=== PATIENT | female | born 1980 | race Caucasian/White ===

== ENCOUNTER 2018-06-13 22:05 | Emergency (ER) | payer OTHER ==
[~2018-06-13 22:05] MED LIST: LIDOCAINE PATCH REMOVAL MC SCH
[2018-06-13 22:21] VITALS: BMI 36.0
[2018-06-13] MEDS ORDERED: METOCLOPRAMIDE HCL INJECTION 10 MG/2 ML VIAL IVPB ONE (22:33)
[2018-06-13] MEDS ORDERED: ACETAMINOPHEN 1000 MG/100 ML VIAL (NON FORMULARY) IVPB ONE (22:33)
[2018-06-13] MEDS ORDERED: SODIUM CHLORIDE 1,000 ML IV STA (22:33)
[2018-06-13] MEDS ORDERED: LIDOCAINE 5% TOPICAL PATCH TP ONE (22:34)
[2018-06-13] MEDS ORDERED: ACETAMINOPHEN INJECTION 100 ML IVPB ONE (22:58)
[2018-06-13] MEDS ORDERED: LIDOCAINE 5% TOPICAL PATCH ONE (22:58)
[2018-06-13] MEDS ORDERED: METOCLOPRAMIDE HCL INJECTION 10 MG/2 ML VIAL ONE (22:58)
--- NOTE | 2018-06-13 23:58 | PDOC ---
History of Present Illness - General Chief Complaint: Headache Stated Complaint: HEAD PAIN Time Seen by Provider: 06/13/18 22:23 History Source: Patient Exam Limitations: No Limitations Past History - Past Medical History Allergies/Adverse Reactions: Allergies Allergy/AdvReac Type Severity Reaction Status Date / Time No Known Allergies Allergy Verified 06/13/18 22:21 Home Medications: Ambulatory Orders Lidocaine 5% Patch [Lidoderm -] 1 patch TP DAILY #30 patch 06/14/18 COPD: No GI Disorders: Yes Kidney Stones: Yes Psychiatric Problems: Yes (BIPOLAR) - Reproductive History (#): 4 Para: 3 - Immunization History Immunization Up to Date: Yes - Suicide/Smoking/Psychosocial Hx Smoking History: Current every day smoker Have you smoked in the past 12 months: Yes Number of Cigarettes Smoked Daily: 10 Information on smoking cessation initiated: No 'Breaking Loose' booklet given: 06/30/15 Hx Alcohol Use: No Drug/Substance Use Hx: Yes Substance Use Type: None Hx Substance Use Treatment: No *Physical Exam - Vital Signs Last Vital Signs Temp Pulse Resp BP Pulse Ox 97.7 F 82 18 146/99 100 06/13/18 22:18 06/13/18 22:18 06/13/18 22:18 06/13/18 22:18 06/13/18 22:18 - Physical Exam General Appearance: Yes: Other (Crying (not due to pain)) HEENT: positive: EOMI, LATRICE Neck: positive: Other (+TTP along L traps, slight pain with turning neck to left ). negative: Rigidity, Tender midline Respiratory/Chest: positive: Lungs Clear, Normal Breath Sounds. negative: Respiratory Distress Cardiovascular: positive: Regular Rhythm, Regular Rate, S1, S2. negative: Murmur Gastrointestinal/Abdominal: positive: Normal Bowel Sounds, Soft. 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 negative: Facial Droop, Confused, Disoriented ED Treatment Course - Medications Given in the ED: ED Medications Discontinued Medications Generic Name Dose Route Start Last Admin Trade Name Freq PRN Reason Stop Dose Admin Acetaminophen 1,000 mg 06/13/18 22:33 06/13/18 23:38 Ofirmev Injection - IVPB 06/13/18 22:34 1,000 mg ONCE ONE Administration Sodium Chloride 1,000 mls @ 1,000 mls/hr 06/13/18 22:33 06/13/18 23:15 Normal Saline - IV 06/13/18 23:32 1,000 mls/hr ASDIR STA Administration Lidocaine 1 patch 06/13/18 22:34 06/13/18 23:10 Lidoderm Patch - TP 06/13/18 22:35 1 patch ONCE ONE Administration Metoclopramide HCl 10 mg 06/13/18 22:33 06/13/18 23:15 Reglan Injection - IVPB 06/13/18 22:34 10 mg ONCE ONE Administration Medical Decision Making - Medical Decision Making 37 y/o F with no sig pmh presents with L sided neck pain and generalized ROBERTO from yesterday, gradual in onset, worsening today. Mentions has been upset as her cousin recently 1 week ago. Took Advil at 4 PM which helped slightly with pain. Today had 3 episodes of NBNB emesis. Noise makes ROBERTO worse. Denies visual/gait changes, numbness/tingling/weakness of extremities, recent trauma, sob, cp, abd pain, dizziness. Likely tension ROBERTO vs migraine Plan: Tylenol, Reglan, IVF, Lido patch, reassess 06/13/18 23:56 Patient feeling much better on reassessment Stable for dc 06/14/18 00:48 *DC/Admit/Observation/Transfer Diagnosis at time of Disposition: Migraine headache Qualifiers: Migraine type: without aura Status migrainosus presence: without status migrainosus Intractability: not intractable Qualified Code(s): G43.009 - Migraine without aura, not intractable, without status migrainosus - Discharge Dispostion Disposition: HOME Condition at time of disposition: Improved Decision to Admit order: No - Prescriptions Prescriptions: Lidocaine 5% Patch [Lidoderm -] 1 patch TP DAILY #30 patch - Referrals - Patient Instructions Printed Discharge Instructions: DI for Migraine Additional Instructions: Thank you for choosing [facility]. It was a pleasure taking care of you. Likely you had a migraine headache Please follow-up with your primary care doctor for further evaluation Return to the Emergency Department if your symptoms worsen or persist, you have fever, vomiting, dizziness, weakness of extremities (arms and/or legs), changes in vision or walking or other concerning symptoms. - Post Discharge Activity
--- NOTE | 2018-06-14 00:53 | PDOC ---
*Physical Exam - Vital Signs Last Vital Signs Temp Pulse Resp BP Pulse Ox 97.7 F 82 18 146/99 100 06/13/18 22:18 06/13/18 22:18 06/13/18 22:18 06/13/18 22:18 06/13/18 22:18 ED Treatment Course - Medications Given in the ED: ED Medications Discontinued Medications Generic Name Dose Route Start Last Admin Trade Name Cullen PRN Reason Stop Dose Admin Acetaminophen 1,000 mg 06/13/18 22:33 06/13/18 23:38 Ofirmev Injection - IVPB 06/13/18 22:34 1,000 mg ONCE ONE Administration Sodium Chloride 1,000 mls @ 1,000 mls/hr 06/13/18 22:33 06/13/18 23:15 Normal Saline - IV 06/13/18 23:32 1,000 mls/hr ASDIR STA Administration Lidocaine 1 patch 06/13/18 22:34 06/13/18 23:10 Lidoderm Patch - TP 06/13/18 22:35 1 patch ONCE ONE Administration Metoclopramide HCl 10 mg 06/13/18 22:33 06/13/18 23:15 Reglan Injection - IVPB 06/13/18 22:34 10 mg ONCE ONE Administration Medical Decision Making - Medical Decision Making 06/14/18 00:52 Case discussed with CJ White Agree with assessment and plan *DC/Admit/Observation/Transfer Diagnosis at time of Disposition: Migraine headache Qualifiers: Migraine type: without aura Status migrainosus presence: without status migrainosus Intractability: not intractable Qualified Code(s): G43.009 - Migraine without aura, not intractable, without status migrainosus - Discharge Dispostion Disposition: HOME Condition at time of disposition: Improved - Prescriptions Prescriptions: Lidocaine 5% Patch [Lidoderm -] 1 patch TP DAILY #30 patch - Referrals - Patient Instructions Printed Discharge Instructions: DI for Migraine Additional Instructions: Thank you for choosing [facility]. It was a pleasure taking care of you. Likely you had a migraine headache Please follow-up with your primary care doctor for further evaluation Return to the Emergency Department if your symptoms worsen or persist, you have fever, vomiting, dizziness, weakness of extremities (arms and/or legs), changes in vision or walking or other concerning symptoms. - Post Discharge Activity
[2018-06-14 00:58] VITALS: BP 134/66; PULSE 96; TEMP 98
== END 2018-06-14 01:10 | disposition home or self-care (01) ==
LOC: JER 22:05
PROC: 3E033GC Introduction of Other Therapeutic Substance into Peripheral Vein, Percutaneous Approach (ICD-10-PCS; principal; 2018-06-13)
PROC: 3E033NZ Introduction of Analgesics, Hypnotics, Sedatives into Peripheral Vein, Percutaneous Approach (ICD-10-PCS; 2018-06-13)
DX: G43.009 Migraine without aura, not intractable, without status migrainosus (principal); F31.9 Bipolar disorder, unspecified; F17.210 Nicotine dependence, cigarettes, uncomplicated
CPT/HCPCS: 99282-25; J0131; J7030

== ENCOUNTER 2018-06-18 01:50 | Emergency (ER) | payer OTHER ==
[2018-06-18 02:22] VITALS: BP 126/75; PULSE 84; TEMP 98.2; BMI 39.4
--- NOTE | 2018-06-18 02:32 | PDOC ---
*Physical Exam - Vital Signs Last Vital Signs Temp Pulse Resp BP Pulse Ox 98.2 F 84 18 126/75 99 06/18/18 01:50 06/18/18 01:50 06/18/18 01:50 06/18/18 01:50 06/18/18 01:50 Medical Decision Making - Medical Decision Making 06/18/18 02:31 Patient seen by the advanced practice provider under my direct supervision. Ancillary testing reviewed as necessary. I agree with plan as outlined by the advanced practice provider. *DC/Admit/Observation/Transfer Diagnosis at time of Disposition: Left ankle sprain Qualifiers: Encounter type: initial encounter Involved ligament of ankle: unspecified ligament Qualified Code(s): S93.402A - Sprain of unspecified ligament of left ankle, initial encounter - Discharge Dispostion Disposition: HOME Condition at time of disposition: Fair - Prescriptions Prescriptions: Ibuprofen 800 mg PO QID PRN #20 tablet PRN Reason: Pain - Referrals Referrals: Nima Connor MD [Staff Physician] - Call tomorrow Olivia Awan MD [Primary Care Provider] - - Patient Instructions Printed Discharge Instructions: DI for Ankle Sprain Additional Instructions: keep in ankle splint. use crutches as directed. apply ice to the area for 24 hours. elevate your leg as much as possible. take ibuprofen every 6 hours as needed for pain follow up with an orthopedic doctor as soon as possible. - Post Discharge Activity Forms/Work/School Notes: Back to Work
--- NOTE | 2018-06-18 02:38 | PDOC ---
History of Present Illness - General Chief Complaint: Pain, Acute Stated Complaint: L ANKLE INJURY Time Seen by Provider: 06/18/18 02:29 History Source: Patient - History of Present Illness Initial Comments: 06/18/18 03:36 37-year-old female complaining of left ankle pain and swelling after twisting ankle on uneven pavement of the street. Patient reports that she is unable to weight-bear. Denies any past medical history. Past History - Past Medical History Allergies/Adverse Reactions: Allergies Allergy/AdvReac Type Severity Reaction Status Date / Time No Known Allergies Allergy Verified 06/18/18 02:22 Home Medications: Ambulatory Orders Lidocaine 5% Patch [Lidoderm -] 1 patch TP DAILY #30 patch 06/14/18 Ibuprofen 800 mg PO QID PRN #20 tablet 06/18/18 COPD: No GI Disorders: Yes Kidney Stones: Yes Psychiatric Problems: Yes (BIPOLAR) - Reproductive History (#): 4 Para: 3 - Immunization History Immunization Up to Date: Yes - Suicide/Smoking/Psychosocial Hx Smoking History: Never smoked Have you smoked in the past 12 months: No Number of Cigarettes Smoked Daily: 10 Information on smoking cessation initiated: No 'Breaking Loose' booklet given: 06/30/15 Hx Alcohol Use: No Drug/Substance Use Hx: No Substance Use Type: None Hx Substance Use Treatment: No Review of Systems - Review of Systems Able to Perform ROS?: Yes Is the patient limited Kyrgyz proficient: No Musculoskeletal: Yes: Other (left ankle pain.) *Physical Exam - Vital Signs Last Vital Signs Temp Pulse Resp BP Pulse Ox 98.2 F 84 18 126/75 99 06/18/18 01:50 06/18/18 01:50 06/18/18 01:50 06/18/18 01:50 06/18/18 01:50 - Physical Exam General Appearance: Yes: Appropriately Dressed Musculoskeletal: positive: Normal Inspection Extremity: positive: Swelling (left ankle.) Integumentary: positive: Normal Color, Dry Progress Note - Progress Note Progress Note: A: left ankle sprain P; XRay: no acute fracture. pending official read RICE \ ankle stirrup and crutches given in the ED outpatient ortho follow up discussed with patient. *DC/Admit/Observation/Transfer Diagnosis at time of Disposition: Left ankle sprain Qualifiers: Encounter type: initial encounter Involved ligament of ankle: unspecified ligament Qualified Code(s): S93.402A - Sprain of unspecified ligament of left ankle, initial encounter - Discharge Dispostion Disposition: HOME Condition at time of disposition: Fair - Prescriptions Prescriptions: Ibuprofen 800 mg PO QID PRN #20 tablet PRN Reason: Pain - Referrals Referrals: Olivia Awan MD [Primary Care Provider] - Nima Connor MD [Staff Physician] - Call tomorrow - Patient Instructions Printed Discharge Instructions: DI for Ankle Sprain Additional Instructions: keep in ankle splint. use crutches as directed. apply ice to the area for 24 hours. elevate your leg as much as possible. take ibuprofen every 6 hours as needed for pain follow up with an orthopedic doctor as soon as possible. - Post Discharge Activity Forms/Work/School Notes: Back to Work
[2018-06-18] MEDS ORDERED: KETOROLAC TROMETHAMINE 30 MG/1 ML VIAL IM ONE (02:58)
[2018-06-18] MEDS ORDERED: KETOROLAC TROMETHAMINE 30 MG/1 ML VIAL ONE (03:11)
== END 2018-06-18 04:12 | disposition home or self-care (01) ==
LOC: JER 01:50
PROC: 2W3QX1Z Immobilization of Right Lower Leg using Splint (ICD-10-PCS; principal; 2018-06-18)
DX: S93.402A Sprain of unspecified ligament of left ankle, initial encounter (principal); X50.1XXA Overexertion from prolonged static or awkward postures, initial encounter; Y93.01 Activity, walking, marching and hiking; Y92.414 Local residential or business street as the place of occurrence of the external cause; Y99.8 Other external cause status
CPT/HCPCS: 29515; 73610-TC-LT-FY; 73630-TC-LT; 99282-25

== ENCOUNTER 2018-11-26 21:47 | Emergency (ER) | payer OTHER ==
[2018-11-26] MEDS ORDERED: ACETAMINOPHEN 500 MG TABLET (FP) PO ONE (21:52)
--- NOTE | 2018-11-26 21:53 | PDOC ---
Rapid Medical Evaluation Chief Complaint: Pain Time Seen by Provider: 11/26/18 21:51 Medical Evaluation: Allergies Allergy/AdvReac Type Severity Reaction Status Date / Time No Known Allergies Allergy Verified 11/26/18 21:51 11/26/18 21:53 Pt c/o: suprapubic pain x 2 hrs, unknown gest age ? approx 2 months Pt on brief exam: vss, no vag bleeding Pt ordered for: labs, urine and u/s, tylenol Pt to proceed to the ED Discharge Disposition - Diagnosis First trimester , Subchorionic bleed, Pelvic pain - Discharge Dispostion Disposition: HOME Condition at time of disposition: Good - Referrals - Patient Instructions Printed Discharge Instructions: DI for -- Discomforts and Remedies Additional Instructions: please keep your padder cushion appointment at [address] - Post Discharge Activity
[2018-11-26 21:54] VITALS: BMI 37.2
[2018-11-26 22:11] LABS: BASO % 1.3 % (0-2.0); HEMATOCRIT 33.9 % (32.4-45.2); HEMOGLOBIN 11.2 GM/dL (10.7-15.3); LYMPH % 24.6 % (8-40); MCH 25.3 pg (25.7-33.7); MCHC 32.9 g/dl (32.0-36.0); MEAN CELL VOLUME 76.9 fl (80-96); MEAN PLT VOLUME 7.2 fl (7.5-11.1); MONO % 9.4 % (3.8-10.2); NEUT % 62.7 % (42.8-82.8); PLATELET COUNT 477 K/MM3 (134-434); RBC 4.41 M/mm3 (3.60-5.2); RDW 17.8 % (11.6-15.6); WHITE BLOOD COUNT 14.8 K/mm3 (4.0-10.0)
[2018-11-26 22:12] LABS: PH,URINE 5.5 (5.0-8.0); URINE APPEARANCE CLEAR; URINE BILIRUBIN NEGATIVE (NEGATIVE); URINE COLOR YELLOW; URINE GLUCOSE (UA) NEGATIVE (NEGATIVE); URINE KETONE TRACE (NEGATIVE); URINE LEUK ESTERASE NEGATIVE (NEGATIVE); URINE NITRITE NEGATIVE (NEGATIVE); URINE PROTEIN NEGATIVE (NEGATIVE); URINE UROBILINOGEN 0.2 mg/dL (0.2-1.0)
--- NOTE | 2018-11-26 22:12 | PDOC ---
History of Present Illness - General Chief Complaint: Pain Stated Complaint: PAIN Time Seen by Provider: 11/26/18 21:51 History Source: Patient Exam Limitations: No Limitations - History of Present Illness Travel History: No Timing/Duration: reports: constant Quality: reports: mild (she has had some suprapubic pain) Pain Radiation: reports: no radiation Activities at Onset: reports: none Aggravating Factors: improves with: None Alleviating Factors: improves with: None Past History - Past Medical History Allergies/Adverse Reactions: Allergies Allergy/AdvReac Type Severity Reaction Status Date / Time No Known Allergies Allergy Verified 11/26/18 21:51 Home Medications: Ambulatory Orders Lidocaine 5% Patch [Lidoderm -] 1 patch TP DAILY #30 patch 06/14/18 Ibuprofen 800 mg PO QID PRN #20 tablet 06/18/18 Asthma: Yes COPD: No GI Disorders: Yes HTN: Yes Kidney Stones: Yes Psychiatric Problems: Yes (BIPOLAR) - Reproductive History (#): 4 Para: 3 - Immunization History Immunization Up to Date: Yes - Psycho Social/Smoking Cessation Hx Smoking History: Current every day smoker Have you smoked in the past 12 months: No Number of Cigarettes Smoked Daily: 10 Information on smoking cessation initiated: No 'Breaking Loose' booklet given: 06/30/15 Hx Alcohol Use: No Drug/Substance Use Hx: No Substance Use Type: None Hx Substance Use Treatment: No Review of Systems - Review of Systems Able to Perform ROS?: Yes Is the patient limited Northern Irish proficient: No Constitutional: No: Symptoms Reported, See HPI, Chills, Diaphoresis, Fever, Loss of Appetite, Malaise, Night Sweats, Weakness, Weight Stable, Unintentional Wgt. Loss, Unexplained wgt Loss, Other HEENTM: No: Symptoms Reported, See HPI, Eye Pain, Blurred Vision, Tearing, Recent change in vision, Double Vision, Cataracts, Ear Pain, Ocular Prothesis, Ear Discharge, Nose Pain, Nose Congestion, Tinnitus, Nose Bleeding, Hearing Loss , Throat Pain, Throat Swelling, Mouth Pain, Dental Problems, Difficulty Swallowing, Mouth Swelling, Other Respiratory: No: Symptoms reported, See HPI, Cough, Orthopnea, Shortness of Breath, SOB with Exertion, SOB at Rest, Stridor, Wheezing, Productive cough, Hemoptysis, Other Cardiac (ROS): No: Symptoms Reported, See HPI, Chest Pain, Edema, Irregular Heart Rate, Lightheadedness, Palpitations, Syncope, Chest Tightness, Other : Yes: Other (pelvic cramping) Musculoskeletal: No: Symptoms Reported, See HPI, Back Pain, Gout, Joint Pain, Joint Swelling, Muscle Pain, Muscle Weakness, Neck Pain, Joint Stiffness, Other Integumentary: No: Symptoms Reported, See HPI, Bruising, Change in Color, Change in Hair/Nails, Dryness, Erythema, Flushing, Lesions, Lumps, Pallor, Pruritus, Rash, Sweating, Other Neurological: No: Symptoms reported, See HPI, Headache, Numbness, Paresthesia, Pre-Existing Deficit, Seizure, Tingling, Tremors, Weakness, Unsteady Gait, Ataxia, Dizziness, Other Endocrine: No: Symptoms Reported, See HPI, Excessive Sweating, Flushing, Intolerance to Cold, Intolerance to Heat, Increased Hunger, Increased Thirst, Increased Urine, Unexplained Weight Gain, Unexplained Weight Loss, Change in Weight, Other Hematologic/Lymphatic: No: Symptoms Reported, See HPI, Anemia, Blood Clots, Easy Bleeding, Easy Bruising, Bleeding Diathesis, Lymph Node Abnormalities, Swollen Glands, Other *Physical Exam - Vital Signs Last Vital Signs Temp Pulse Resp BP Pulse Ox 98.2 F 94 H 20 109/57 L 97 11/26/18 21:52 11/26/18 21:52 11/26/18 21:52 11/26/18 21:52 11/26/18 21:52 - Physical Exam General Appearance: Yes: Nourished HEENT: positive: Normal Voice Neck: positive: Supple Respiratory/Chest: positive: Lungs Clear, Normal Breath Sounds Cardiovascular: positive: Regular Rhythm, Regular Rate Gastrointestinal/Abdominal: positive: Normal Bowel Sounds, Soft Musculoskeletal: positive: Normal Inspection Extremity: positive: Normal Inspection, Normal Range of Motion Integumentary: positive: Normal Color, Warm 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 intact, Fully Oriented, Alert, Motor Strength / ED Treatment Course - LABORATORY CBC & Chemistry Diagram: 11/26/18 22:01 11/26/18 22:01 - ADDITIONAL ORDERS Additional order review: Laboratory Results 11/26/18 22:01 Urine Color Yellow Urine Appearance Clear Urine pH 5.5 Ur Specific [place] 1.030 Urine Protein Negative Urine Glucose (UA) Negative Urine Ketones Trace H Urine Blood Negative Urine Nitrite Negative Urine Bilirubin Negative Urine Urobilinogen 0.2 Ur Leukocyte Esterase Negative Medical Decision Making - Medical Decision Making 11/26/18 22:14 38-year-old woman with a past medical history of 5 para 4 whose last menstrual cycle was October 27 coming in for pelvic cramping but no bleeding She did a test at her clinic and it was positive Plan beta-hCG, UA, pelvic ultrasound 11/26/18 23:28 UA no UTI [place]bc [place] [facility] [id number] 11/26/18 23:28 11/26/18 23:29 chemistries are unremarkable 11/26/18 23:45 blood type is A POSITIVE 11/26/18 23:46 ultrasound impression Single viable intrauterine gestation at approximately 9 weeks and 5 days Small subchorionic implantation bleed Left ovary appears unremarkable no Doppler evidence of torsion The right ovarian ovary could not be definitely seen There is no obvious uterine pathology Cervix appears to be closed measuring 4 cm Impression first trimester , pelvic discomfort, small subchorionic implantation bleed Plan follow-up with [facility] Discharge - Discharge Information Problems reviewed: No Clinical Impression/Diagnosis: First trimester , Pelvic pain Subchorionic bleed Qualifiers: Fetus number: single or unspecified fetus Trimester: first trimester Qualified Code(s): O41.8X10 - Other specified disorders of amniotic fluid and membranes, first trimester, not applicable or unspecified; O46.8X1 - Other antepartum hemorrhage, first trimester Condition: Good Disposition: HOME - Admission No - Follow up/Referral - Patient Discharge Instructions Patient Printed Discharge Instructions: DI for -- Discomforts and Remedies Additional Instructions: please keep your target man appointment at [address] [place] [address] - Post Discharge Activity
[2018-11-26] MEDS ORDERED: ACETAMINOPHEN 325 MG TABLET (FP) ONE (22:57)
[2018-11-26 23:06] LABS: ALBUMIN 3.4 g/dl (3.4-5.0); BILIRUBIN,TOTAL 0.1 mg/dL (0.2-1); BLOOD UREA NITROGEN 12.6 mg/dL (7-18); CALCIUM 8.5 mg/dL (8.5-10.1); CREATININE 0.7 mg/dL (0.55-1.3); POTASSIUM 4.2 mmol/L (3.5-5.1); TOT PROT 7.2 g/dl (6.4-8.2)
[2018-11-27 00:39] VITALS: BP 135/75; PULSE 74; TEMP 97.9
== END 2018-11-27 00:10 | disposition home or self-care (01) ==
LOC: JER 21:47
DX: O26.891 Other specified pregnancy related conditions, first trimester (principal); O46.91 Antepartum hemorrhage, unspecified, first trimester; O41.8X10 Other specified disorders of amniotic fluid and membranes, first trimester, not applicable or unspecified; O99.341 Other mental disorders complicating pregnancy, first trimester; F31.89 Other bipolar disorder; O10.911 Unspecified pre-existing hypertension complicating pregnancy, first trimester; J45.998 Other asthma; Z3A.09 9 weeks gestation of pregnancy; F17.210 Nicotine dependence, cigarettes, uncomplicated
CPT/HCPCS: 36415; 76801-TC; 80053; 81003; 84702; 85025; 87086; 99283-25

== ENCOUNTER 2018-12-04 04:10 | Emergency (ER) | payer OTHER ==
--- NOTE | 2018-12-04 04:39 | PDOC ---
Attending Attestation - Resident Resident Name: Cb Law - ED Attending Attestation I have performed the following: I have examined & evaluated the patient, The case was reviewed & discussed with the resident, I agree w/resident's findings & plan - HPI HPI: 12/04/18 05:46 see resident hpi - Physicial Exam PE: 12/04/18 05:46 agree with resident exam - Medical Decision Making 12/04/18 05:47 38-year-old female with vaginal bleeding Bedside ultrasound shows a live IUP Patient wishes to wait for formal ultrasound due to bleeding Signed out to dayshift pending results
[2018-12-04] MEDS ORDERED: SODIUM CHLORIDE 1,000 ML IV STA (04:53)
[2018-12-04 04:54] VITALS: BMI 39.5
--- NOTE | 2018-12-04 05:16 | PDOC ---
History of Present Illness <Cliff Downing - Last Filed: 12/04/18 10:16> - General History Source: Patient Exam Limitations: No Limitations - History of Present Illness Initial Comments: 12/04/18 06:58 38 yo F approximately 11 weeks GA with LMP 10/27/2018 presents to the emergency department with painless vaginal bleeding with onset at 4 am. Per the patient, she describes it as approximately 10 cc of red blood was on her pad. Denies active hemorrhaging. Denies recent trauma and abdominal pain. Denies the following: fever, chills, SOB, chest pain, melena, diarrhea, hematochezia, dysuria, hematuria, and nausea/vomiting. Per the patient, she had a TVUS last week that showed single IUP with a subchorionic bleed. <Cb Law - Last Filed: 12/04/18 15:34> - General Chief Complaint: Vaginal Bleeding Stated Complaint: 11 WEEKS PRGNANT/VAG BLEED Time Seen by Provider: 12/04/18 04:39 Past History <Cliff Downing - Last Filed: 12/04/18 10:16> - Past Medical History Asthma: Yes COPD: No GI Disorders: Yes HTN: Yes Kidney Stones: Yes Psychiatric Problems: Yes (BIPOLAR) - Reproductive History Is Patient Now?: Yes (#): 4 Para: 3 Therapeutic (s) & number: No - Immunization History Immunization Up to Date: Yes - Psycho Social/Smoking Cessation Hx Smoking History: Never smoked Have you smoked in the past 12 months: No Number of Cigarettes Smoked Daily: 10 'Breaking Loose' booklet given: 06/30/15 Hx Alcohol Use: No Drug/Substance Use Hx: No Substance Use Type: None Hx Substance Use Treatment: No <Cb Law - Last Filed: 12/04/18 15:34> - Past Medical History Allergies/Adverse Reactions: Allergies Allergy/AdvReac Type Severity Reaction Status Date / Time No Known Allergies Allergy Verified 12/04/18 04:54 Home Medications: Ambulatory Orders NK [No Known Home Medication] 11/27/18 Review of Systems - Review of Systems Able to Perform ROS?: Yes Is the patient limited [place] proficient: No Constitutional: No: Chills, Diaphoresis, Fever, Weakness HEENTM: No: Eye Pain, Ear Pain, Nose Pain, Throat Pain, Mouth Pain Respiratory: No: Cough, Shortness of Breath, Hemoptysis Cardiac (ROS): No: Chest Pain, Lightheadedness, Palpitations ABD/GI: No: Constipated, Diarrhea, Nausea, Rectal Bleeding, Vomiting, Tarry Stools : Yes: Other (positive vaginal bleeding). No: Burning, Dysuria, Hematuria Musculoskeletal: No: Back Pain, Joint Pain, Neck Pain Integumentary: No: Bruising, Erythema, Rash Neurological: No: Headache, Numbness, Tingling, Tremors Psychiatric: No: Change in Appetite Endocrine: No: Unexplained Weight Gain Hematologic/Lymphatic: No: Anemia <Cb Law - Last Filed: 12/04/18 15:34> *Physical Exam - Vital Signs Last Vital Signs Temp Pulse Resp BP Pulse Ox 98.2 F 86 18 117/66 98 12/04/18 04:10 12/04/18 06:54 12/04/18 06:54 12/04/18 04:10 12/04/18 06:54 <Cliff Downing - Last Filed: 12/04/18 10:16> - Vital Signs Last Vital Signs Temp Pulse Resp BP Pulse Ox 98.2 F 86 18 117/66 99 12/04/18 04:10 12/04/18 04:10 12/04/18 04:10 12/04/18 04:10 12/04/18 04:10 - Physical Exam General Appearance: Yes: Nourished, Appropriately Dressed, Obese. No: Apparent Distress, Intoxicated HEENT: positive: EOMI, LATRICE, Normal Voice, Symmetrical, Pharynx Normal. negative: Pale Conjunctivae, Scleral Icterus (R), Scleral Icterus (L), Muffled/ Hoarse voice, Pharyngeal Erythema, Tonsillar Exudate, Tonsillar Erythema Neck: positive: Trachea midline, Supple. negative: Tender, Lymphadenopathy (R) , Lymphadenopathy (L), Tender lateral, Tender midline Respiratory/Chest: positive: Lungs Clear, Normal Breath Sounds. negative: Chest Tender, Respiratory Distress, Accessory Muscle Use Cardiovascular: positive: Regular Rhythm, Regular Rate, S1, S2. negative: Systolic Murmur Female Pelvic Exam: positive: normal external exam, cervical os closed, normal adnexa, normal size ovaries. negative: vaginal bleeding Gastrointestinal/Abdominal: positive: Normal Bowel Sounds, Flat, Soft. negative : Tender, Distended, Guarding Lymphatic: negative: Adenopathy Musculoskeletal: positive: Normal Inspection. negative: CVA Tenderness, Vertebral Tenderness Extremity: positive: Normal Capillary Refill, Normal Inspection, Normal Range of Motion. negative: Tender Integumentary: positive: Normal Color, Dry, Warm Neurologic: positive: Fully Oriented, Alert, Normal Mood/Affect <Cb Law - Last Filed: 12/04/18 15:34> ED Treatment Course - LABORATORY CBC & Chemistry Diagram: 12/04/18 04:54 12/04/18 04:54 - ADDITIONAL ORDERS Additional order review: Laboratory Results 12/04/18 12/04/18 12/04/18 04:54 04:54 04:54 PT with INR 11.10 INR 0.94 Sodium 136 Potassium 4.3 Chloride 105 Carbon Dioxide 25 Anion Gap 7 L BUN 15.2 Creatinine 0.7 Est GFR (CKD-EPI)AfAm 127.39 Est GFR (CKD-EPI)NonAf 109.91 Random Glucose 97 Calcium 8.6 Total Bilirubin 0.2 AST 19 ALT 18 Alkaline Phosphatase 64 Total Protein 6.7 Albumin 3.2 L Beta HCG, Quant Blood Type A POSITIVE Antibody Screen Negative 12/04/18 04:54 PT with INR INR Sodium Potassium Chloride Carbon Dioxide Anion Gap BUN Creatinine Est GFR (CKD-EPI)AfAm Est GFR (CKD-EPI)NonAf Random Glucose Calcium Total Bilirubin AST ALT Alkaline Phosphatase Total Protein Albumin Beta HCG, Quant 48057.9 Blood Type Antibody Screen 12/04/18 04:54 RBC 4.21 MCV 78.5 L MCHC 32.6 RDW 19.2 H MPV 7.7 Neutrophils % 61.8 Lymphocytes % 26.2 Monocytes % 8.2 Eosinophils % 3.1 Basophils % 0.7 - Medications Given in the ED: ED Medications Discontinued Medications Generic Name Dose Route Start Last Admin Trade Name Freq PRN Reason Stop Dose Admin Sodium Chloride 1,000 mls @ 1,000 mls/hr 12/04/18 04:53 12/04/18 05:10 Normal Saline - IV 12/04/18 05:52 1,000 mls/hr ASDIR STA Administration <Cliff Downing - Last Filed: 12/04/18 10:16> - LABORATORY CBC & Chemistry Diagram: 12/04/18 04:54 12/04/18 04:54 <Cb Law - Last Filed: 12/04/18 15:34> Medical Decision Making - Medical Decision Making 38 yo F approximately 11 weeks GA with LMP 10/27/2018 presents to the emergency department with painless vaginal bleeding with onset at 4 am. Initial vitals: Initial Vital Signs Temp Pulse Resp BP Pulse Ox 98.2 F 86 18 117/66 99 12/04/18 04:10 12/04/18 04:10 12/04/18 04:10 12/04/18 04:10 12/04/18 04:10 Work up: patient presents with painless vaginal bleeding. pocus shows FHR of 164 with single IUP. likely a bleed from subchorion as seen on the previous TVUS. patient to get bhcg, ua, cbc, cmp, ts, and TVUS. Laboratory Tests 12/04/18 12/04/18 12/04/18 04:54 04:54 04:54 WBC 12.8 H RBC 4.21 Hgb 10.8 Hct 33.0 MCV 78.5 L MCH 25.6 L MCHC 32.6 RDW 19.2 H Plt Count 430 MPV 7.7 Absolute Neuts (auto) 7.9 Neutrophils % 61.8 Lymphocytes % 26.2 Monocytes % 8.2 Eosinophils % 3.1 Basophils % 0.7 Nucleated RBC % 0 PT with INR INR Sodium 136 Potassium 4.3 Chloride 105 Carbon Dioxide 25 Anion Gap 7 L BUN 15.2 Creatinine 0.7 Est GFR (CKD-EPI)AfAm 127.39 Est GFR (CKD-EPI)NonAf 109.91 Random Glucose 97 Calcium 8.6 Total Bilirubin 0.2 AST 19 ALT 18 Alkaline Phosphatase 64 Total Protein 6.7 Albumin 3.2 L Beta HCG, Quant 99721.9 Blood Type Antibody Screen 12/04/18 12/04/18 04:54 04:54 WBC RBC Hgb Hct MCV MCH MCHC RDW Plt Count MPV Absolute Neuts (auto) Neutrophils % Lymphocytes % Monocytes % Eosinophils % Basophils % Nucleated RBC % PT with INR 11.10 INR 0.94 Sodium Potassium Chloride Carbon Dioxide Anion Gap BUN Creatinine Est GFR (CKD-EPI)AfAm Est GFR (CKD-EPI)NonAf Random Glucose Calcium Total Bilirubin AST ALT Alkaline Phosphatase Total Protein Albumin Beta HCG, Quant Blood Type A POSITIVE Antibody Screen Negative patient was signed out to day team. <Cb Law - Last Filed: 12/04/18 15:34> Discharge - Discharge Information Problems reviewed: Yes - Admission No <Cliff Downing - Last Filed: 12/04/18 10:16> - Discharge Information Problems reviewed: Yes <Cb Law - Last Filed: 12/04/18 15:34> - Discharge Information Clinical Impression/Diagnosis: Bleeding in early , Threatened miscarriage Condition: Stable Disposition: HOME - Follow up/Referral Referrals: Olivia Awan MD [Primary Care Provider] - - Patient Discharge Instructions Patient Printed Discharge Instructions: DI for Threatened - Post Discharge Activity Work/Back to School Note: Back to Work
[2018-12-04 05:49] LABS: BASO % 0.7 % (0-2.0); EOS % 3.1 % (0-4.5); HEMOGLOBIN 10.8 GM/dL (10.7-15.3); LYMPH % 26.2 % (8-40); MCH 25.6 pg (25.7-33.7); MCHC 32.6 g/dl (32.0-36.0); MEAN CELL VOLUME 78.5 fl (80-96); MEAN PLT VOLUME 7.7 fl (7.5-11.1); MONO % 8.2 % (3.8-10.2); NEUT % 61.8 % (42.8-82.8); PLATELET COUNT 430 K/MM3 (134-434); RBC 4.21 M/mm3 (3.60-5.2); RDW 19.2 % (11.6-15.6); WHITE BLOOD COUNT 12.8 K/mm3 (4.0-10.0)
[2018-12-04 06:02] LABS: INR 0.94 (0.83-1.09); PROTHROMBIN TIME (PATIENT) 11.1 SEC (9.7-13.0)
[2018-12-04 06:22] LABS: ALBUMIN 3.2 g/dl (3.4-5.0); BILIRUBIN,TOTAL 0.2 mg/dL (0.2-1); BLOOD UREA NITROGEN 15.2 mg/dL (7-18); CALCIUM 8.6 mg/dL (8.5-10.1); CREATININE 0.7 mg/dL (0.55-1.3); POTASSIUM 4.3 mmol/L (3.5-5.1); TOT PROT 6.7 g/dl (6.4-8.2)
[2018-12-04 10:40] VITALS: BP 122/70; PULSE 82; TEMP 98.9
== END 2018-12-04 10:40 | disposition home or self-care (01) ==
LOC: JER 04:10
PROC: 3E0337Z Introduction of Electrolytic and Water Balance Substance into Peripheral Vein, Percutaneous Approach (ICD-10-PCS; principal; 2018-12-04)
DX: O26.891 Other specified pregnancy related conditions, first trimester (principal); Z3A.11 11 weeks gestation of pregnancy; N93.9 Abnormal uterine and vaginal bleeding, unspecified
CPT/HCPCS: 36415; 76817-TC; 80053; 84702; 85025; 85610; 86850; 86900; 86901; 87086; 99283-25; J7030

== ENCOUNTER 2018-12-10 20:09 | Emergency (ER) | payer OTHER ==
--- NOTE | 2018-12-10 20:15 | PDOC ---
Rapid Medical Evaluation Time Seen by Provider: 12/10/18 20:14 Medical Evaluation: Allergies Allergy/AdvReac Type Severity Reaction Status Date / Time No Known Allergies Allergy Verified 12/04/18 04:54 12/10/18 20:14 I have performed a brief in-person evaluation of this patient. The patient presents with a chief complaint of: Ongoing painless vag bleeding. ~ 11 weeks w/ multiple ED visits for 1st trimester bleeding. On initial ED visit on 11/26-had +IUP w/ small subchorionic bleed on US and beta >45K, on visit 12/04-had ~10 week IUP w/ FHR and no mention of subchorionic bleed on rpt US, w/ beta decreased to >23K. Known RH +. No abd pain, dysuria, f/c at this time. Of note ucx <10K group D strep w/ no sensitivities. No recent abx. For unclear reasons, pt has not seen her OB since last visit Pertinent physical exam findings:stable and in NAD I have ordered the following:rpt beta and US, UA and Ucx The patient will proceed to the ED for further evaluation. Discharge Disposition - Diagnosis Threatened miscarriage - Referrals - Patient Instructions - Post Discharge Activity
[2018-12-10 20:25] VITALS: BMI 37.2
--- NOTE | 2018-12-10 21:08 | PDOC ---
Documentation entered by Isabelle Green SCRIBE, acting as scribe for Tati Green MD. Tati Green MD: This documentation has been prepared by the Peter donnelly Adrianna, SCRIBE, under my direction and personally reviewed by me in its entirety. I confirm that the documentation accurately reflects all work, treatment, procedures, and medical decision making performed by me. History of Present Illness - General Chief Complaint: Vaginal Bleeding Stated Complaint: THREE MONTHS GA/VAGINAL BLEEDING Time Seen by Provider: 12/10/18 20:14 - History of Present Illness Initial Comments: The patient is a 38 year old female, (currently at ~12 weeks gestation), with a significant PMH of asthma, HTN, kidney stones, and bipolar disorder, presenting with ongoing vaginal bleeding. Patient has had multiple ED visits for this complaint (from 11/26 until now), with confirmed IUP (subchorionic bleed on first ultrasound but not visualized on most recent). She notes the bleeding is painless, she does not wear a pad, and only notices it when she wipes. Patient reports passing clots today which is new, prompting her visit to the ED. She endorses some low back pain, but otherwise denies any acute complaints. Patient was supposed to see her [employer] 4 days ago, but did not make the appointment (is supposed to follow up with Pal Tam in 3 days). Allergies: NKA, NKDA Surgical History: None reported Social History: Denies EtOH, tobacco, or illicit drug use Past History - Past Medical History Allergies/Adverse Reactions: Allergies Allergy/AdvReac Type Severity Reaction Status Date / Time No Known Allergies Allergy Verified 12/04/18 04:54 Home Medications: Ambulatory Orders NK [No Known Home Medication] 11/27/18 Asthma: Yes COPD: No GI Disorders: Yes HTN: Yes Kidney Stones: Yes Psychiatric Problems: Yes (BIPOLAR) - Reproductive History (#): 4 Para: 3 Therapeutic (s) & number: No - Immunization History Immunization Up to Date: Yes - Psycho Social/Smoking Cessation Hx Smoking History: Never smoked Have you smoked in the past 12 months: No Number of Cigarettes Smoked Daily: 10 'Breaking Loose' booklet given: 06/30/15 Hx Alcohol Use: No Drug/Substance Use Hx: No Substance Use Type: None Hx Substance Use Treatment: No Review of Systems - Review of Systems Comments:: GENERAL/CONSTITUTIONAL: +~12 weeks gestation. No fever or chills. No weakness. HEAD, EYES, EARS, NOSE AND THROAT: No change in vision. No ear pain or discharge. No sore throat. CARDIOVASCULAR: No chest pain or shortness of breath. RESPIRATORY: No cough, wheezing, or hemoptysis. GASTROINTESTINAL: No nausea, vomiting, diarrhea or constipation. GENITOURINARY: No dysuria, frequency, or change in urination. PELVIC: +Painless vaginal bleeding. MUSCULOSKELETAL: +Low back pain. No joint or muscle swelling or pain. No neck pain. SKIN: No rash NEUROLOGIC: No headache, vertigo, loss of consciousness, or change in strength/ sensation. ENDOCRINE: No increased thirst. No abnormal weight change. HEMATOLOGIC/LYMPHATIC: No anemia, easy bleeding, or history of blood clots. ALLERGIC/IMMUNOLOGIC: No hives or skin allergy. *Physical Exam - Vital Signs Last Vital Signs Temp Pulse Resp BP Pulse Ox 98.2 F 89 20 115/75 100 12/10/18 20:21 12/10/18 20:21 12/10/18 20:21 12/10/18 20:21 12/10/18 20:21 - Physical Exam Comments: GENERAL: +Obese. +Vaginal bleeding with wiping. Awake, alert, and fully oriented , in no acute distress HEAD: No signs of trauma EYES: PERRLA, EOMI, sclera anicteric, conjunctiva clear ENT: Auricles normal inspection, hearing grossly normal, nares patent, oropharynx clear without exudates. Moist mucosa NECK: Normal ROM, supple, no lymphadenopathy, JVD, or masses LUNGS: Breath sounds equal, clear to auscultation bilaterally. No wheezes, and no crackles HEART: Regular rate and rhythm, normal S1 and S2, no murmurs, rubs or gallops ABDOMEN: Soft, nontender, normoactive bowel sounds. No guarding, no rebound. No masses EXTREMITIES: Normal range of motion, no edema. No clubbing or cyanosis. No cords, erythema, or tenderness BACK: +Low back tenderness. NEUROLOGICAL: Cranial nerves II through XII grossly intact. Normal speech, normal gait SKIN: Warm, Dry, normal turgor, no rashes or lesions noted. ED Treatment Course - RADIOLOGY Radiology Studies Ordered: EXAM#: TYPE/EXAM: RESULT: [id number] US/ <14WKS US Obstetrical ultrasound Clinical information: first trimester bleed with decreasing beta Impression: Single viable intrauterine gestation at approximately 11 weeks 4 days. No definite sonographic abnormality is identified. Reported By: Donell Hernandez MD 12/10/18 21:47 Medical Decision Making - Medical Decision Making 12/10/18 21:07 38-year-old female who was here on December 04 for vaginal bleeding and had an ultrasound that showed a single live IUP of 10 weeks and 6 days Again she returns the emergency department because she wiped herself today and found a blood clot she does not have any pelvic cramping which she does have low back pain She has an appointment this Sunday at [facility]. with her [employer] 12/10/18 22:17 His ultrasound shows single live IUP of 11 weeks and 6 days a good heart tones, the cervix is closed Patient will be following up with his Sunday12/10/18 22:23 Patient is leaving prior to the results of her urinalysis Cell phone [phone] She states that if she needs antibiotics to [facility] Discharge - Discharge Information Problems reviewed: Yes Clinical Impression/Diagnosis: Threatened miscarriage Condition: Good Disposition: HOME - Follow up/Referral - Patient Discharge Instructions Patient Printed Discharge Instructions: DI for Vaginal Bleeding During Additional Instructions: Please keep your director asset appointment this week - Post Discharge Activity
[2018-12-10 22:34] VITALS: TEMP 98.4
[2018-12-10 22:36] VITALS: BP 126/74; PULSE 73
[2018-12-10 22:44] LABS: EPI CELLS >36 /HPF (0-5/HPF); HYALINE CASTS 71 /lpf (0-8); PH,URINE 5.5 (5.0-8.0); URINE APPEARANCE CLOUDY; URINE BACTERIA 403.2 /hpf (NEGATIVE); URINE BILIRUBIN NEGATIVE (NEGATIVE); URINE COLOR DK YELLOW; URINE GLUCOSE (UA) NEGATIVE (NEGATIVE); URINE KETONE TRACE (NEGATIVE); URINE LEUK ESTERASE TRACE (NEGATIVE); URINE NITRITE NEGATIVE (NEGATIVE); URINE PROTEIN 1+ (NEGATIVE); URINE UROBILINOGEN 0.2 mg/dL (0.2-1.0); URINE WBC 14 /hpf (0-5)
[2018-12-10 23:09] LABS: YEAST NONE SEEN (NEGATIVE)
== END 2018-12-10 22:36 | disposition home or self-care (01) ==
LOC: JER 20:09
DX: O26.891 Other specified pregnancy related conditions, first trimester (principal); O20.0 Threatened abortion; O10.911 Unspecified pre-existing hypertension complicating pregnancy, first trimester; Z3A.11 11 weeks gestation of pregnancy
CPT/HCPCS: 76801-TC; 81003; 87086; 87186; 99282-25

== ENCOUNTER 2018-12-25 09:56 | Emergency (ER) | payer OTHER ==
[2018-12-25 10:03] VITALS: BP 124/56; PULSE 80; TEMP 97.9; BMI 37.2
--- NOTE | 2018-12-25 10:42 | PDOC ---
History of Present Illness - General Chief Complaint: Vaginal Bleeding Stated Complaint: VAGINAL BLEEDING 19WKS Time Seen by Provider: 12/25/18 10:19 Past History - Past Medical History Allergies/Adverse Reactions: Allergies Allergy/AdvReac Type Severity Reaction Status Date / Time No Known Allergies Allergy Verified 12/25/18 10:03 Home Medications: Ambulatory Orders Cephalexin Monohydrate [Keflex -] 500 mg PO BID #14 capsule 12/17/18 Asthma: Yes COPD: No GI Disorders: Yes HTN: Yes Kidney Stones: Yes Psychiatric Problems: Yes (BIPOLAR) - Reproductive History (#): 4 Para: 3 Therapeutic (s) & number: No Spontaneous : 0 - Immunization History Immunization Up to Date: Yes - Psycho Social/Smoking Cessation Hx Smoking History: Never smoked Have you smoked in the past 12 months: No Number of Cigarettes Smoked Daily: 10 Information on smoking cessation initiated: No 'Breaking Loose' booklet given: 06/30/15 Hx Alcohol Use: No Drug/Substance Use Hx: No Substance Use Type: None Hx Substance Use Treatment: No *Physical Exam - Vital Signs Last Vital Signs Temp Pulse Resp BP Pulse Ox 97.9 F 80 19 124/56 L 100 12/25/18 10:01 12/25/18 10:01 12/25/18 10:01 12/25/18 10:01 12/25/18 10:01 ED Treatment Course - LABORATORY CBC & Chemistry Diagram: 12/25/18 11:15 12/25/18 11:15 Discharge - Discharge Information Clinical Impression/Diagnosis: Second trimester , Bleeding in early Condition: Stable Disposition: HOME - Admission No - Follow up/Referral Referrals: Olivia Awan MD [Primary Care Provider] - Charmaine Samano MD [Staff Physician] - - Patient Discharge Instructions Patient Printed Discharge Instructions: DI for Vaginal Bleeding During Additional Instructions: You were evaluated for your vaginal bleeding today. There was no blood noted on your exam. The baby had a heart rate of 144 on ultrasound. The baby was also moving well. It is possible the blood is coming from your urine. You may take Tylenol as needed for pain. Follow the dosing instruction on the bottle. Please keep taking the antibiotics as previously prescribed. Follow-up with your [employer] on Sunday as scheduled. Return to the ER for worsening pain, bleeding from the vaginal canal more than 1 pad an hour, or if you have any changes in your symptoms. - Post Discharge Activity Work/Back to School Note: Back to Work
[2018-12-25] MEDS ORDERED: ACETAMINOPHEN 325 MG TABLET (FP) PO ONE (11:12)
[2018-12-25] MEDS ORDERED: ACETAMINOPHEN 325 MG TABLET (FP) ONE (11:25)
[2018-12-25 11:36] LABS: BASO % 0.5 % (0-2.0); EOS % 2.2 % (0-4.5); HEMATOCRIT 34.6 % (32.4-45.2); LYMPH % 22.5 % (8-40); MCHC 31.8 g/dl (32.0-36.0); MEAN CELL VOLUME 81.6 fl (80-96); MEAN PLT VOLUME 7.6 fl (7.5-11.1); MONO % 8.1 % (3.8-10.2); NEUT % 66.7 % (42.8-82.8); PLATELET COUNT 347 K/MM3 (134-434); RBC 4.24 M/mm3 (3.60-5.2); RDW 20.3 % (11.6-15.6); WHITE BLOOD COUNT 13.8 K/mm3 (4.0-10.0)
[2018-12-25 11:43] LABS: EPI CELLS 6.4 /HPF (0-5/HPF); HYALINE CASTS 4 /lpf (0-8); URINE APPEARANCE CLEAR; URINE BACTERIA 74.5 /hpf (NEGATIVE); URINE BILIRUBIN NEGATIVE (NEGATIVE); URINE COLOR YELLOW; URINE GLUCOSE (UA) NEGATIVE (NEGATIVE); URINE KETONE NEGATIVE (NEGATIVE); URINE LEUK ESTERASE NEGATIVE (NEGATIVE); URINE NITRITE NEGATIVE (NEGATIVE); URINE PROTEIN NEGATIVE (NEGATIVE); URINE RBC 6 /hpf (0-4); URINE UROBILINOGEN 0.2 mg/dL (0.2-1.0); URINE WBC 2 /hpf (0-5)
[2018-12-25 12:31] LABS: ALBUMIN 3.2 g/dl (3.4-5.0); BILIRUBIN,TOTAL 0.1 mg/dL (0.2-1); BLOOD UREA NITROGEN 11.2 mg/dL (7-18); CALCIUM 8.6 mg/dL (8.5-10.1); CREATININE 0.5 mg/dL (0.55-1.3); POTASSIUM 3.8 mmol/L (3.5-5.1); TOT PROT 6.5 g/dl (6.4-8.2)
--- NOTE | 2018-12-25 12:35 | PDOC ---
*Physical Exam - Vital Signs Last Vital Signs Temp Pulse Resp BP Pulse Ox 97.9 F 80 19 124/56 L 100 12/25/18 10:01 12/25/18 10:01 12/25/18 10:01 12/25/18 10:01 12/25/18 10:01 - Physical Exam General Appearance: Yes: Nourished Respiratory/Chest: positive: Lungs Clear, Normal Breath Sounds Cardiovascular: positive: Regular Rhythm, Regular Rate, S1, S2 Gastrointestinal/Abdominal: positive: Normal Bowel Sounds, Flat, Soft. negative : Tender ED Treatment Course - LABORATORY CBC & Chemistry Diagram: 12/25/18 11:15 12/25/18 11:15 - ADDITIONAL ORDERS Additional order review: Laboratory Results 12/25/18 12/25/18 11:25 11:15 Sodium 136 Potassium 3.8 Chloride 106 Carbon Dioxide 27 Anion Gap 3 L BUN 11.2 Creatinine 0.5 L Est GFR (CKD-EPI)AfAm 142.30 Est GFR (CKD-EPI)NonAf 122.78 Random Glucose 73 L Calcium 8.6 Total Bilirubin 0.1 L AST 7 L ALT 20 Alkaline Phosphatase 65 Total Protein 6.5 Albumin 3.2 L Beta HCG, Quant 17511.0 Urine Color Yellow Urine Appearance Clear Urine pH 6.0 Ur Specific Fountain 1.025 Urine Protein Negative Urine Glucose (UA) Negative Urine Ketones Negative Urine Blood Trace Urine Nitrite Negative Urine Bilirubin Negative Urine Urobilinogen 0.2 Ur Leukocyte Esterase Negative Urine WBC (Auto) 2 Urine RBC (Auto) 6 Urine Casts (Auto) 4 U Epithel Cells (Auto) 6.4 Urine Bacteria (Auto) 74.5 12/25/18 11:15 RBC 4.24 MCV 81.6 MCHC 31.8 L RDW 20.3 H MPV 7.6 Neutrophils % 66.7 Lymphocytes % 22.5 Monocytes % 8.1 Eosinophils % 2.2 Basophils % 0.5 - Medications Given in the ED: ED Medications Discontinued Medications Generic Name Dose Route Start Last Admin Trade Name Freq PRN Reason Stop Dose Admin Acetaminophen 650 mg 12/25/18 11:12 12/25/18 11:32 Tylenol - PO 12/25/18 11:13 650 mg ONCE ONE Administration Medical Decision Making - Medical Decision Making 12/25/18 12:33 38-year-old female currently 14 weeks here today complaining of vaginal bleeding spotting. Noted blood when she wiped no abdominal pain no nausea no vomiting no other current complaints on exam patient has minimal lower abdominal tenderness pelvic exam was performed by CJ Vergara lab work is pending rule out inevitable versus threatened AB versus demise. Focused ED bedside ultrasound performed movement noted normal heart rate of 148bpm biparietal diameter showed gestational age of 13 weeks and 5 days. Patient states she would like to go as she has an appointment at [address] has follow-up with the [facility] discharged home told to return for any concerns will be given antibiotics for UTI. Patient seen and examined in concurrence with Adia Vergara agree with her assessment and plan Discharge - Follow up/Referral Referrals: Olivia Awan MD [Primary Care Provider] - - Patient Discharge Instructions - Post Discharge Activity
== END 2018-12-25 12:58 | disposition home or self-care (01) ==
LOC: JER 09:56
DX: O26.892 Other specified pregnancy related conditions, second trimester (principal); Z3A.19 19 weeks gestation of pregnancy; N93.9 Abnormal uterine and vaginal bleeding, unspecified
CPT/HCPCS: 36415; 76815; 80053; 81003; 84702; 85025; 87086; 87186; 99282-25

== ENCOUNTER 2019-02-09 13:17 | Emergency (ER) | payer OTHER ==
[2019-02-09 13:32] VITALS: BMI 38.9
--- NOTE | 2019-02-09 13:51 | PDOC ---
History of Present Illness - General Chief Complaint: Pain, Acute Stated Complaint: FALL Time Seen by Provider: 02/09/19 13:32 - History of Present Illness Initial Comments: 02/09/19 13:35 CHIEF COMPLAINT: R ankle/foot pain HISTORY OF PRESENT ILLNESS: 38 yo 20 week F presents to fast track with pain to R ankle. Patient reports she tripped and fell on stairs and severely twisted her ankle. She reports swelling to her ankle and is unable to bear any weight to her R foot/ankle. No recent travel or sick contacts. PAST MEDICAL HISTORY: Denies past medical history FAMILY HISTORY: Denies SOCIAL HISTORY: Denies tobacco, alcohol, illicit drug use. SURGICAL HISTORY: Denies ALLERGIES: No known drug allergies REVIEW OF SYSTEMS General/Constitutional: Denies fever or chills. Denies weakness, weight change. HEENT: Denies change in vision. Denies ear pain or discharge. Denies sore throat. Cardiovascular: Denies chest pain or shortness of breath. Respiratory: Denies cough, wheezing, or hemoptysis. Gastrointestinal: Denies nausea, vomiting, diarrhea or constipation. Denies rectal bleeding. Genitourinary: Denies dysuria, frequency, or change in urination. Musculoskeletal: R ankle pain and swelling. Skin: Denies rash or easy bruising. Neurologic: Denies headache, vertigo, loss of consciousness, or loss of sensation. Psychiatric: Denies depression or anxiety. PHYSICAL EXAM General Appearance: Well-appearing, appropriately dressed. No apparent distress. HEENT: EOMI, PERRLA, normal ENT inspection, normal voice, TMs normal, pharynx normal. No conjunctival pallor. No photophobia, scleral icterus. Neck: Supple. Trachea midline. No tenderness, rigidity, carotid bruit, stridor , lymphadenopathy, or thyromegaly. Respiratory/Chest: Lungs CTAB. No shortness of breath, chest tenderness, respiratory distress, accessory muscle use. No crackles, rales, rhonchi, stridor , wheezing, dullness Cardiovascular: RRR. S1, S2. No JVD, murmur, bradycardia, tachycardia. Gastrointestinal/Abdominal: Normal bowel sounds. Abdomen soft, non-distended. No tenderness or rebound tenderness. No organomegaly, pulsatile mass, guarding , hernia, hepatomegaly, splenomegaly. Musculoskeletal/Extremities: Swelling and ecchymosis to R ankle to lateral and medial malleolus. FROM of all other extremities, normal capillary refill. Pelvis Stable. No CVA tenderness. No tenderness to extremities, pedal edema, swelling, erythema or deformity. Integumentary: Appropriate color, dry, warm. No cyanosis, erythema, jaundice or rash Neurologic: radio journalist II-XII intact. Fully oriented, alert. Appropriate mood/affect. Motor strength 5/5. No appreciable EOM palsy, facial droop or sensory deficit. Past History - Past Medical History Allergies/Adverse Reactions: Allergies Allergy/AdvReac Type Severity Reaction Status Date / Time No Known Allergies Allergy Verified 02/09/19 13:23 Home Medications: Ambulatory Orders Acetaminophen [Tylenol -] 1,000 mg PO Q6H PRN #100 tablet 02/09/19 Asthma: Yes COPD: No GI Disorders: Yes HTN: Yes Kidney Stones: Yes Psychiatric Problems: Yes (BIPOLAR) - Reproductive History (#): 4 Para: 3 Therapeutic (s) & number: No Spontaneous : 0 - Immunization History Immunization Up to Date: Yes - Psycho Social/Smoking Cessation Hx Smoking History: Current some day smoker Have you smoked in the past 12 months: No Number of Cigarettes Smoked Daily: 3 Information on smoking cessation initiated: Yes 'Breaking Loose' booklet given: 06/30/15 Hx Alcohol Use: No Drug/Substance Use Hx: No Substance Use Type: None Hx Substance Use Treatment: No *Physical Exam - Vital Signs Last Vital Signs Temp Pulse Resp BP Pulse Ox 99.7 F H 104 H 24 H 139/94 99 02/09/19 13:20 02/09/19 13:20 02/09/19 13:20 02/09/19 13:20 02/09/19 13:20 ED Treatment Course - RADIOLOGY Radiology Studies Ordered: Category Date Time Status ANKLE & FOOT-RIGHT* [RAD] Stat Radiology 02/09/19 13:32 Ordered Medical Decision Making - Medical Decision Making 02/09/19 13:51 38 yo 20 week F presents to fast track with pain to R ankle. Xray with posterior malleolar fracture. Orthoglass splint applied. Crutches given. 02/09/19 14:27 Patient 20 weeks 2 days , due date June 26. Will send to L&D for OB clearance. Discharge - Discharge Information Problems reviewed: Yes Clinical Impression/Diagnosis: Ankle fracture Qualifiers: Encounter type: initial encounter Fracture type: closed Laterality: right Qualified Code(s): S82.891A - Other fracture of right lower leg, initial encounter for closed fracture - Additional Discharge Information Prescriptions: Acetaminophen [Tylenol -] 1,000 mg PO Q6H PRN #100 tablet PRN Reason: Pain - Follow up/Referral Referrals: Olivia Awan MD [Primary Care Provider] - Salbador Reyez MD [Staff Physician] - Uriah Driver DO [Staff Physician] - - Patient Discharge Instructions Patient Printed Discharge Instructions: DI for Ankle Fracture Additional Instructions: You MUST follow up with orthopedics within the next 48 hours for continued management of your ankle fracture. If you develop loss of sensation, tingling, or change in color to your toes, or you develop severe swelling your ankle inside your splint, please return to the ER immediately. - Post Discharge Activity
[2019-02-09] MEDS ORDERED: IBUPROFEN 600 MG TABLET (FP) PO ONE ×2 (15:33→16:15)
--- NOTE | 2019-02-09 15:59 | PN ---
Progress Note (short form) - Note Progress Note: 20 plus weeks s/p fall, with frature ankle, came to er for evaluation, sent up for fh check, fht was present around 150 , no uterine contractions were seen, no vag bleeding, pt has no complaints of abd pain, motrin and percoset were given. pt will see an orthopedic tomorrow.
[2019-02-09 16:03] VITALS: BP 136/71; PULSE 95; TEMP 98.4
== END 2019-02-09 16:23 | disposition home or self-care (01) ==
LOC: JER 13:17
PROC: 2W3QX1Z Immobilization of Right Lower Leg using Splint (ICD-10-PCS; principal; 2019-02-09)
DX: O99.89 Other specified diseases and conditions complicating pregnancy, childbirth and the puerperium (principal); S82.891A Other fracture of right lower leg, initial encounter for closed fracture; W10.8XXA Fall (on) (from) other stairs and steps, initial encounter; Y93.89 Activity, other specified; Y92.89 Other specified places as the place of occurrence of the external cause; Y99.8 Other external cause status; Z3A.20 20 weeks gestation of pregnancy; O10.911 Unspecified pre-existing hypertension complicating pregnancy, first trimester; Z87.09 Personal history of other diseases of the respiratory system; F31.9 Bipolar disorder, unspecified; F17.210 Nicotine dependence, cigarettes, uncomplicated
CPT/HCPCS: 29515; 73610-TC-RT-FY; 73630-TC-RT-FY; 99282-25

== ENCOUNTER 2019-02-17 00:34 | Emergency (ER) | payer OTHER ==
[2019-02-17 01:12] VITALS: BP 113/56; PULSE 72; TEMP 98.1; BMI 38.9
--- NOTE | 2019-02-17 01:15 | PDOC ---
History of Present Illness - General Chief Complaint: Pain, Acute Stated Complaint: BROKEN FOOT/5MO Time Seen by Provider: 02/17/19 01:15 - History of Present Illness Initial Comments: 02/17/19 01:46 38 yo F currently about 6 months , presenting with ongoing R ankle pain. Was seen here on 02/09/2019, seen to have a posterior malleolar fracture. States that she attempted to follow up with orthopedics, but was informed that they could not see her due to her being . Is out of her Percocet. Denies CP, SOB, fevers/chills, N/V. Past History - Past Medical History Allergies/Adverse Reactions: Allergies Allergy/AdvReac Type Severity Reaction Status Date / Time No Known Allergies Allergy Verified 02/17/19 01:12 Home Medications: Ambulatory Orders Acetaminophen [Tylenol -] 1,000 mg PO Q6H PRN #100 tablet 02/09/19 Ferrous Sulfate [Feosol] 325 mg PO 02/09/19 Pnv No.95/Ferrous Fum/Folic AC [ Vitamin Tablet] 1 each PO DAILY Docusate Sodium [Colace] 100 mg PO BID 14 Days #30 capsule 02/10/19 Oxycodone HCl/Acetaminophen [Percocet 5-325 mg Tablet] 1 tab PO Q6H PRN #12 tablet MDD 4 02/10/19 Oxycodone HCl/Acetaminophen [Percocet 5-325 mg Tablet] 1 tab PO Q6H 2 Days #8 tablet MDD 4 02/17/19 Asthma: Yes COPD: No GI Disorders: Yes HTN: Yes Kidney Stones: Yes Psychiatric Problems: Yes (BIPOLAR) - Reproductive History (#): 4 Para: 3 Therapeutic (s) & number: No Spontaneous : 0 - Immunization History Immunization Up to Date: Yes - Psycho Social/Smoking Cessation Hx Smoking History: Never smoked Have you smoked in the past 12 months: No Number of Cigarettes Smoked Daily: 3 'Breaking Loose' booklet given: 06/30/15 Hx Alcohol Use: No Drug/Substance Use Hx: No Substance Use Type: None Hx Substance Use Treatment: No Review of Systems - Review of Systems Comments:: 02/17/19 03:09 GENERAL/CONSTITUTIONAL: No fever or chills. No weakness. HEAD, EYES, EARS, NOSE AND THROAT: No change in vision. No ear pain or discharge. No sore throat. CARDIOVASCULAR: No chest pain or shortness of breath. RESPIRATORY: No cough, wheezing, or hemoptysis. GASTROINTESTINAL: No nausea, vomiting, diarrhea or constipation. GENITOURINARY: No dysuria, frequency, or change in urination. MUSCULOSKELETAL: No muscle swelling or pain. No neck or back pain. Significant ankle pain. SKIN: No rash NEUROLOGIC: No headache, vertigo, loss of consciousness, or change in strength/ sensation. ENDOCRINE: No increased thirst. No abnormal weight change. HEMATOLOGIC/LYMPHATIC: No anemia, easy bleeding, or history of blood clots. ALLERGIC/IMMUNOLOGIC: No hives or skin allergy *Physical Exam - Vital Signs Last Vital Signs Temp Pulse Resp BP Pulse Ox 98.1 F 72 18 113/56 L 100 02/17/19 00:35 02/17/19 00:35 02/17/19 00:35 02/17/19 00:35 02/17/19 00:35 - Physical Exam 02/17/19 03:13 Gen: well-developed, well-nourished, NAD Neuro: AAOX4, CN II-XII intact, FTN intact, EOMI, PERRLA, 5/5 strength, SILT HEENT: atraumatic, normocephalic, dry mucous membranes Neck: trachea midline, supple CV: regular rate, regular rhythm, no murmurs, rubs, or gallops Pulm: CTA b/l, no wheezing Abd: soft, non-distended, non-tender MSK: full ROM, intact pulses Extr: no edema. Ttp of right ankle, inability to plantar or dorsiflex 2/2 pain. Skin: warm, dry Medical Decision Making - Medical Decision Making 02/17/19 02:23 38 yo F with posterior malleolar fracture. Explained to patient that she needs to go to a facility capable of performing orthopedic surgery on a patient. - repeat Xrays to assess for interval change 02/17/19 03:05 Xrays unchanged. Will dc for close follow up with pain medication. Discharge - Discharge Information Problems reviewed: Yes Clinical Impression/Diagnosis: Fracture of posterior malleolus of right tibia Condition: Stable Disposition: HOME - Admission No - Additional Discharge Information Prescriptions: Oxycodone HCl/Acetaminophen [Percocet 5-325 mg Tablet] 1 tab PO Q6H 2 Days #8 tablet MDD 4 - Follow up/Referral Referrals: Olivia Awan MD [Primary Care Provider] - - Patient Discharge Instructions Additional Instructions: You were seen with a posterior malleolar fracture. This requires immediate follow-up. Please see your OBGYN immediately to discuss orthopedic options and surgical management. - Post Discharge Activity
--- NOTE | 2019-02-17 01:46 | PDOC ---
Attending Attestation - Resident Resident Name: Aramis Fleming - ED Attending Attestation I have performed the following: I have examined & evaluated the patient, The case was reviewed & discussed with the resident, I agree w/resident's findings & plan, Exceptions are as noted - HPI HPI: 02/17/19 03:04 6 months with posterior malleoli fracture presents to the ED for persistent pain has not arranged yet for orthopedic follow-up secondary to complications with insurance and the stage of her No new injuries pain is persistent constant no exacerbating or alleviating factors. - Physicial Exam PE: 02/17/19 03:04 Vitals: Triage Vital signs reviewed General Appearance: No acute distress, well nourished well developed, Head: Atraumatic, Extremities: Full range of motion to all extremities Neurovascular intact distally ankle in posterior splint S no rash, no petechiae Psych: Normal mood, normal affect - Medical Decision Making 02/17/19 03:01 Patient with posterior malleolus fracture was advised to follow-up with orthopedics but the doctor she saw was not able to care for her given her We have advised the patient follow-up immediately with her PRODUCTION OPERATIONS ENGINEER to help arrange an orthopedic surgeon and hospital system that can both operate on her ankle and is capable of handling anesthesia in OR for a 6-month Patient provided with additional 2 days of pain meds while she arranges care Findings, the need for follow-up and strict return instructions discussed with patient.
== END 2019-02-17 03:14 | disposition home or self-care (01) ==
LOC: JER 00:34
DX: O99.89 Other specified diseases and conditions complicating pregnancy, childbirth and the puerperium (principal); S82.891D Other fracture of right lower leg, subsequent encounter for closed fracture with routine healing; W10.8XXD Fall (on) (from) other stairs and steps, subsequent encounter; Z3A.21 21 weeks gestation of pregnancy
CPT/HCPCS: 73590-TC-RT-FY; 73610-TC-RT-FY; 73630-TC-RT-FY; 99281-25

== ENCOUNTER 2020-01-19 05:15 | Emergency (ER) | payer OTHER ==
[2020-01-19 05:47] VITALS: BMI 32.8
[2020-01-19] MEDS ORDERED: ACETAMINOPHEN 1000 MG/100 ML VIAL (NON FORMULARY) IVPB ONE (07:32)
[2020-01-19] MEDS ORDERED: ACETAMINOPHEN 325 MG TABLET (FP) ONE (07:45)
[2020-01-19] MEDS ORDERED: KETOROLAC TROMETHAMINE 60 MG/2 ML VIAL ONE (07:46)
[2020-01-19 07:59] VITALS: BP 146/91; PULSE 95; TEMP 98.2
[2020-01-19] MEDS: ACETAMINOPHEN 325 MG TABLET (FP) PO ONE ×2 (08:00→08:01)
[2020-01-19] MEDS: KETOROLAC TROMETHAMINE 60 MG/2 ML VIAL IM ONE ×2 (08:00→08:01)
== END 2020-01-19 08:27 | disposition home or self-care (01) ==
LOC: JER 05:15
PROC: 3E0233Z Introduction of Anti-inflammatory into Muscle, Percutaneous Approach (ICD-10-PCS; principal; 2020-01-19)
PROC: 3E0337Z Introduction of Electrolytic and Water Balance Substance into Peripheral Vein, Percutaneous Approach (ICD-10-PCS; 2020-01-19)
DX: M79.10 Myalgia, unspecified site (principal); B34.9 Viral infection, unspecified; Z11.59 Encounter for screening for other viral diseases
CPT/HCPCS: 99285-25; C9803; U0003

== ENCOUNTER 2020-12-31 16:51 | Emergency (ER) | payer OTHER ==
[2020-12-31 17:21] VITALS: BP 128/69; PULSE 74; TEMP 98.7; BMI 29.2
[2020-12-31] MEDS ORDERED: NAPROXEN 500 MG TABLET PO ONE (19:28)
[2020-12-31] MEDS ORDERED: NAPROXEN 500 MG TABLET ONE (19:33)
== END 2020-12-31 19:51 | disposition home or self-care (01) ==
LOC: JERFT 16:51
DX: M17.11 Unilateral primary osteoarthritis, right knee (principal); M79.604 Pain in right leg; S93.401A Sprain of unspecified ligament of right ankle, initial encounter
CPT/HCPCS: 73562-TC-RT-FY; 73610-TC-RT-FY; 99284-25